=== PATIENT | female | born 1965 | race Caucasian/White ===

== ENCOUNTER 2020-04-19 10:25 | Emergency (ER) | payer OTHER, SELFPAY ==
--- NOTE | 2020-04-19 10:35 | ED.WOUNDLAC ---
HPI - Wound/Laceration General Chief Complaint: Wound/Laceration Stated Complaint: r/hand cut fingers Time Seen by Provider: 04/19/20 10:35 Source: patient and RN notes reviewed History of Present Illness HPI narrative: Patient is a 54-year-old female who presents the urgent care with complaints of laceration to the tip of the fourth and fifth digits of the right hand. Patient states she did at this morning using a mandolin for slicing. Patient has applied bandages to the tips of the finger and it appears that bleeding was controlled prior to arrival. Patient denies any other acute complaints or injuries. Patient is unsure if she is up-to-date on her tetanus. 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 No acute distress noted. Patient read the plan of care. Related Data Home Medications Medication Instructions Recorded Confirmed albuterol sulfate 2 inh INHALATION Q4-6H 04/19/20 04/19/20 esomeprazole magnesium [Nexium] 20 mg PO DAILY 04/19/20 04/19/20 lisinopril 10 mg DAILY 04/19/20 04/19/20 Allergies Allergy/AdvReac Type Severity Reaction Status Date / Time No Known Allergies Allergy Verified 04/19/20 10:51 Review of Systems Review of Systems: Narrative: CONSTITUTIONAL: Denies fever, chills, or sweats. EYES: Denies visual changes, redness, or discharge. ENT: Denies rhinorrhea, congestion, sore throat, or otalgia. CARDIOVASCULAR: Denies chest pain, palpitations, or edema. RESPIRATORY: Denies cough or dyspnea. GASTROINTESTINAL: Denies abdominal pain, nausea, vomiting, or diarrhea. GENITOURINARY: Denies dysuria or hematuria. SKIN: Reports of lacerations to the tips of the fourth and fifth digits of the right hand. MUSCULOSKELETAL: Denies back pain, joint pain, or myalgia. NEUROLOGIC: Denies headache, numbness, or weakness. All other systems reviewed are negative, except as documented in HPI. PMFSH Social History Social History Gender identity (if verbalized by the patient): Female Comments At the time of my signature, I reviewed and agree with the nursing past medical, surgical, social, and family history. There is no relevant family history pertinent to the patient complaint. Exam Narrative: Exam Narrative: GENERAL: This is a well-nourished, well-developed patient, in no apparent distress. HEAD: normocephalic, atraumatic. EYES: PERRL. Sclera clear/white. Vision is grossly intact. EARS: External ears normal NOSE: External nose normal with no obvious nasal discharge, nares without redness SKIN: 0.25 cm skin avulsions to the fourth and fifth digits of the right hand NEURO: awake, alert, and oriented to person, place and time. There were no obvious focal neurologic abnormalities. EXTREMITIES: Capillary refill less than 2 seconds to right upper extremity with positive strong right radial pulse. Course Vital Signs Vital signs: Vital Signs Temperature 98 F 04/19/20 10:41 Pulse Rate 83 04/19/20 10:41 Respiratory Rate 04/19/20 10:41 Blood Pressure 153/100 H 04/19/20 10:41 Pulse Oximetry 100 04/19/20 10:41 Temperature 98 F 04/19/20 10:41 Pulse Rate 83 04/19/20 10:41 Respiratory Rate 04/19/20 10:41 Blood Pressure 153/100 H 04/19/20 10:41 Pulse Oximetry 100 04/19/20 10:41 Reviewed?patient is informed that they may have pre-hypertension or hypertension based on a blood pressure reading in the department. I recommend the patient call the primary care provider listed on their discharge instructions or a physician of their choice this week to arrange follow-up for further evaluation of possible pre-hypertension or hypertension. Procedures Laceration Laceration 1: Site: upper extremity (Fourth and fifth digits of the right hand skin avulsions) Side (If applicable): right Size (cm): 0.25 ====== Skin Level ====== ====== Subcutaneous Layer ====== ====== Muscle Layer ====== ====== Tendon Layer ======
[2020-04-19 10:41] VITALS: BP 153/100; PULSE 83; RESP 20; TEMP 36.6; O2SAT 100
== END 2020-04-19 11:04 | disposition home or self-care (01) ==
PROVIDERS: Emergency Provider Nurse Practitioner Family; PCP Internal Medicine
DX: S61.204A Unspecified open wound of right ring finger without damage to nail, initial encounter (principal); S61.206A Unspecified open wound of right little finger without damage to nail, initial encounter; W27.8XXA Contact with other nonpowered hand tool, initial encounter; I10 Essential (primary) hypertension; K21.9 Gastro-esophageal reflux disease without esophagitis
CPT/HCPCS: 29130; 99212; G0463

== ENCOUNTER 2020-10-03 08:41 | Outpatient (NON) | payer OTHER, SELFPAY ==
[2020-10-03 18:51] LABS: SARS-CoV-2 RNA PCR Negative
== END 2020-10-03 08:42 ==
PROVIDERS: PCP Internal Medicine; Visit Provider Nurse Practitioner Family
DX: R53.1 Weakness (principal); Z20.822 Contact with and (suspected) exposure to COVID-19
CPT/HCPCS: C9803; U0003

== ENCOUNTER 2021-11-25 22:21 | Emergency (ER) | payer OTHER, SELFPAY ==
[2021-11-25 22:37] VITALS: BP 162/96; PULSE 103; RESP 18; TEMP 36.3; O2SAT 99
[2021-11-25 22:40] VITALS: RESP 16
--- NOTE | 2021-11-25 22:55 | ECG_ITS ---
Measurements Intervals [place] Rate: 89 P: 59 RI: 126 QRS: 47 QRSD: 94 T: 56 QT: 367 QTc: 448 Interpretive Statements SINUS RHYTHM MINIMAL Q WAVES- INFERIOR LEADS BASELINE ARTIFACT- II, III, AVR, AVL, AVF, V1-V6 BORDERLINE ECG Electronically Signed On 11-26-2021 7:23:21 [employer] by Ryland Frost D.O.
[2021-11-25 23:24] LABS: Basophils Percent Auto 0.5 % (0.2-1.2); Eosinophils Absolute Auto 0.1 K/mm3 (0-0.3); Eosinophils Percent Auto 1.5 % (0-4.4); Hematocrit 41.9 % (37.0-47.0); Hemoglobin 13.6 g/dL (12.0-15.0); Immature Granulocyte Absolute 0.02 K/mm3 (0.00-0.031); Immature Granulocyte Percent A 0.2 % (0-0.5); Lymphocytes Percent Auto 45.5 % (18.3-44.2); Mean Corpuscular HGB Conc 32.5 g/dl (32-36); Mean Corpuscular Volume 95.4 fl (80-100); Mean Platelet Volume 10.4 fl (7.4-10.4); Monocytes Absolute Auto 0.5 K/mm3 (0.1-0.6); Monocytes Percent Auto 6.1 % (2.6-8.5); Neutrophils Percent Auto 46.2 % (45.5-73.1); Platelet Count Result 242 k/mm3 (150-375); Red Blood Count 4.39 M/mm3 (4.2-5.4); Red Cell Distribution Width 13.3 % (11.5-14.5); White Blood Count 8.6 K/mm3 (4.5-10.0)
[2021-11-25 23:43] LABS: Alanine Aminotransferase 23 U/L (4-35); Albumin Level 4.6 g/dL (3.5-5.1); Alkaline Phosphatase 67 U/L (38-126); Anion Gap 10 mmol/L (8-16); Aspartate Amino Transferase 30 U/L (14-36); Bilirubin,Total 0.7 mg/dL (0.2-1.3); Blood Urea Nitrogen 16 mg/dL (7-17); Calcium 9.1 mg/dL (8.4-10.2); Carbon Dioxide 26 mmol/L (22-30); Chloride 104 mmol/L (98-107); Estimated CRCL calculation 68 ml/min; Estimated Glomerular Filt Rate > 60; Glucose 120 mg/dL (65-110); Sodium 140 mmol/L (137-145)
[2021-11-25 23:45] LABS: Magnesium 2.1 mg/dL (1.6-2.3)
[2021-11-26] VITALS: BP 143/78; PULSE 78; RESP 15; O2SAT 99
--- NOTE | 2021-11-26 00:46 | ED.GENADULT ---
HPI - General Adult General Chief complaint: Unspecified Stated complaint: DONT FEEL RIGHT Time Seen by Provider: 11/25/21 22:38 Source: patient and RN notes reviewed Mode of arrival: ambulatory Limitations: no limitations History of Present Illness HPI narrative: This is a 56 year old female who presents for evaluation of right dental abscess and not feeling well. She noticed right cheek pressure due to upper tooth infection. She was going to wait until saturday to go to dentist, but she started to feel unwell. She reports having chills, nausea and heart racing. She denies chest pain, cough , fever or shortness of breath. Related Data Home Medications Medication Instructions Recorded Confirmed albuterol sulfate 2 inh INHALATION Q4-6H 04/19/20 04/19/20 esomeprazole magnesium [Nexium] 20 mg PO DAILY 04/19/20 04/19/20 lisinopril 10 mg DAILY 04/19/20 04/19/20 Allergies Allergy/AdvReac Type Severity Reaction Status Date / Time amoxicillin Allergy Rash Verified 11/25/21 22:42 Review of Systems Review of Systems: All systems reviewed & are unremarkable except as noted in HPI and below PMFSH Past Medical History Medical History (Updated 11/26/21 @ 02:10 by Linda Candelaria MD) Patient denies medical problems Surgical History Surgical History (Updated 11/26/21 @ 06:24 by Linda Candelaria MD) No pertinent past surgical history Social History Social History (Updated 11/26/21 @ 00:49 by Linda Candelaria MD) Smoking status: Never smoker Gender identity (if verbalized by the patient): Female Exam Narrative: GENERAL: Well-appearing, well-nourished, and in no acute distress. HEAD: Normocephalic, atraumatic EYES: PERRLA and EOMI, conjunctiva clear without discharge EARS: TM's clear bilaterally without erythema or dullness NECK: Supple, without lymphadenopathy or mass RESPIRATORY: No respiratory distress, Airway patent, Respirations non-labored, Clear to auscultation without rales, rhonchi or wheeze ABDOMEN: Soft, nontender, nondistended, normal active bowel sounds. No masses. No rebound or guarding, No organomegaly. EXTREMITIES: No edema, normal strength with full range of motion. SKIN: Warm, dry, normal color without rash NEURO: Alert and oriented x3. CN 2-12 grossly intact. No focal deficits. PSYCH: Normal mood and affect. HENMT: Mouth: Yes lip normal, Yes tongue normal and Yes moist mucous membranes Teeth and gingiva: abnormal tooth and associated gingiva (gum swelling, fluctuance at tooth 4, TTP) and fair dentition Throat: posterior oropharynx normal, tonsils normal and uvula midline Course Reevaluation(s) Reevaluation #1: I Discussed with patient labs unremarkable. She states she did not get rash or difficulty breathing from amoxicillin. She wants to take augmentin instead of clindamycin Date: 11/26/21 Time: 01:13 Reevaluation #2: Patient does not have any complaints. I discussed return precautions with patient. Date: 11/26/21 Time: 02:09 Vital Signs Vital signs: Vital Signs Temperature 97.4 F L 11/25/21 22:37 Pulse Rate 103 H 11/25/21 22:37 Respiratory Rate 18 11/25/21 22:37 Blood Pressure 162/96 H 11/25/21 22:37 Pulse Oximetry 99 11/25/21 22:37 Temperature 97.4 F L 11/25/21 22:37 Pulse Rate 82 11/26/21 02:14 Respiratory Rate 16 11/26/21 02:14 Blood Pressure 131/70 11/26/21 02:14 Pulse Oximetry 98 11/26/21 02:14 Procedures Abscess I/D oral: Date of Incision: 11/26/21 Time of Incision: 01:00 Side (if applicable): right (tooth # 4) Local Anesthetic: lidocaine 1% and with epi Amount of anesthesia used (mL): 1 Technique: incised with #11 blade Irrigation: Yes Packing used?: none I&D Results: Blood Medical Decision Making Vital Signs Vital Signs: Vital Signs Temperature 97.4 F L 11/25/21 22:37 Pulse Rate 103 H 11/25/21 22:37 Respiratory Rate 18 11/25/21 22:37 Blood Pre
[2021-11-26] MEDS: AMOXICILLIN/CLAVULANATE K 875-125 MG TAB 1 TABLET PO (01:21)
--- NOTE | 2021-11-26 01:23 | PC.NURSE ---
MACK Candelaria aware of amoxicillin allergy patient stated earlier to me. States patient told her she was unsure of allergy. Ok given to administer medication. Will monitor patient.
[2021-11-26 02:14] VITALS: BP 131/70; PULSE 82; RESP 16; O2SAT 98
== END 2021-11-26 02:20 | disposition home or self-care (01) ==
PROVIDERS: Emergency Provider General Practice; PCP Internal Medicine
DX: K04.7 Periapical abscess without sinus (principal); R94.31 Abnormal electrocardiogram [ECG] [EKG]
CPT/HCPCS: 36415; 41800; 80053; 83735; 85025; 93005; 99283; A9270